=== PATIENT | female | born 1975 | race Caucasian/White ===

== ENCOUNTER 2018-11-11 22:51 | Emergency (ER) | payer BC ==
[~2018-11-11] VITALS: Ht 157.5 cm; Wt 74.8 kg
[~2018-11-11 22:51] MED LIST: ALBU8.5H6 INH; ALPR1TAB2 PO; ASPI-482 PO; CHOL500045 PO; CYCL10TA2 PO; FENO145T30 PO; FEXO180T81 PO; GLIM4TAB2 PO; LISI1TAB7 PO; METF100010 PO; MONT10TA6 PO; OXCA300O PO; OXCA300T19 PO; TOPI50TA38 PO; TRAZ-86 PO
--- NOTE | 2018-11-12 00:33 | PHYS DOC ---
Past Medical History Past Medical History: Anxiety, Arthritis, Asthma, Bipolar, Depression, Diabetes-Type II, Fibromyalgia, High Cholesterol, Hypertension, Migraines, Other Additional Past Medical Histor: ptsd,add,carpal tunnel,insomnia,c5-c7 bulging discs,sleep apnea,allergies Past Surgical History: Cholecystectomy, Tubal ligation, Other Additional Past Surgical Histo: hymenectomy? Alcohol Use: None Drug Use: None Adult General Chief Complaint Chief Complaint: BLURRED/DOUBLE VISION HPI HPI Patient is a 43 year old female who presents with complaining of episodes of mann ble vision. Patient complaining of episodes of double vision in the morning that usually lasts about 20 minutes for the last 3 days. Patient stated she had an episode of double vision since 1930 after she woke up from her nap that did not resolve like her usual episodes of double vision. Review of Systems Review of Systems Constitutional: Denies fever or chills [] Eyes: Denies change in visual acuity, redness, or eye pain [] HENT: Denies nasal congestion or sore throat [] Respiratory: Denies cough or shortness of breath [] Cardiovascular: No additional information not addressed in HPI [] GI: Denies abdominal pain, nausea, vomiting, bloody stools or diarrhea [] : Denies dysuria or hematuria [] Musculoskeletal: Denies back pain or joint pain [] Integument: Denies rash or skin lesions [] Neurologic: Denies headache, focal weakness or sensory changes [] Endocrine: Denies polyuria or polydipsia [] All other systems were reviewed and found to be within normal limits, except as documented in this note. Current Medications Current Medications Current Medications Medications (Trade) Dose Ordered Sig/Caitlin Start Time Stop Time Status Last Admin Dose Admin Albuterol Sulfate (Ventolin Neb Soln) 10 mg 1X ONCE 11/12/18 01:00 11/12/18 01:01 Cancel Ceftriaxone Sodium (Rocephin Im) 1 gm 1X ONCE 11/12/18 02:00 11/12/18 02:01 Cancel Ceftriaxone Sodium (Rocephin) 1 gm 1X ONCE 11/12/18 02:00 11/12/18 02:01 DC 11/12/18 01:55 1 GM Dextrose (Dextrose 50%-Water Syringe) 25 gm 1X ONCE 11/12/18 01:00 11/12/18 01:01 Cancel Insulin Human Regular (HumuLIN R VIAL) 10 unit 1X ONCE 11/12/18 01:00 11/12/18 01:01 Cancel Lorazepam (Ativan Inj) 1 mg 1X ONCE 11/12/18 01:00 11/12/18 01:01 DC 11/12/18 00:40 1 MG Magnesium Sulfate 50 ml @ 25 mls/hr 1X ONCE 11/12/18 02:00 11/12/18 03:58 DC 11/12/18 01:55 25 MLS/HR Sodium Chloride 1,000 ml @ 1,000 mls/hr 1X ONCE 11/12/18 02:00 11/12/18 02:59 DC 11/12/18 01:55 1,000 MLS/HR Allergies Allergies Allergies Coded Allergies Type Severity Reaction Last Updated Verified Penicillins Allergy Intermediate hives/rash 03/18/17 Yes erythromycin base Allergy Intermediate vomiting 03/18/17 Yes lithium Allergy Intermediate toxicity 03/18/17 Yes olanzapine Allergy Intermediate twitching 03/18/17 Yes risperidone Allergy Intermediate altered mental status 03/18/17 Yes ziprasidone Allergy Intermediate "spaced out" 03/18/17 No Physical Exam Physical Exam Constitutional: Well developed, well nourished, no acute distress, non-toxic appearance. [] HENT: Normocephalic, atraumatic, bilateral external ears normal, oropharynx moist, no oral exudates, nose normal. [] Eyes: PERRLA, EOMI, conjunctiva normal, no discharge. [] Neck: Normal range of motion, no tenderness, supple, no stridor. [] Cardiovascular:Heart rate regular rhythm, no murmur [] Lungs & Thorax: Bilateral breath sounds clear to auscultation [] Abdomen: Bowel sounds normal, soft, no tenderness, no masses, no pulsatile masses. [] Skin: Warm, dry, no erythema, no rash. [] Back: No tenderness, no CVA tenderness. [] Extremities: No tenderness, no cyanosis, no clubbing, ROM intact, no edema. [] Neurologic: Alert and oriented X 3, normal motor function, normal sensory function, no focal deficits noted. [] Psychologic: Affect normal, judgement normal, mood normal. [] Current Patient Data Vital Signs Vital Signs Date Time Temp Pulse Resp B/P (MAP) Pulse Ox O2 Delivery O2 Flow Rate FiO2 11/12/18 03:21 115 148/88 (108) 99 Room Air 11/11/18 23:45 99.7 18 99.7 Lab Values Laboratory Tests Test 11/11/18 23:50 11/12/18 00:05 11/12/18 00:29 POC Urine HCG, Qualitative Hcg negative (Negative) Urine Collection Type Unknown Urine Color Yellow Urine Clarity Clear Urine pH 6.5 Urine Specific [place] 1.025 Urine Protein Negative mg/dL (NEG-TRACE) Urine Glucose (UA) 100 mg/dL (NEG) Urine Ketones (Stick) Negative mg/dL (NEG) Urine Blood Moderate (NEG) Urine Nitrite Negative (NEG) Urine Bilirubin Negative (NEG) Urine Urobilinogen Dipstick 0.2 mg/dL (0.2 mg/dL) Urine Leukocyte Esterase Moderate (NEG) Urine RBC 6-10 /HPF (0-2) Urine WBC Tntc /HPF (0-4) Urine Squamous Epithelial Cells Mod /LPF Urine Bacteria Moderate /HPF (0-FEW) Urine Mucus Slight /LPF Urine Opiates Screen Neg (NEG) Urine Methadone Screen Neg (NEG) Urine Barbiturates Neg (NEG) Urine Phencyclidine Screen Neg (NEG) Urine Amphetamine/Methamphetamine Neg (NEG) Urine Benzodiazepines Screen Pos (NEG) Urine Cocaine Screen Neg (NEG) Urine Cannabinoids Screen Neg (NEG) Urine Ethyl Alcohol Neg (NEG) White Blood Count 8.4 x10^3/uL (4.0-11.0) Red Blood Count 4.20 x10^6/uL (3.50-5.40) Hemoglobin 11.9 g/dL (12.0-15.5) L Hematocrit 35.0 % (36.0-47.0) L Mean Corpuscular Volume 83 fL (79-100) Mean Corpuscular Hemoglobin 28 pg (25-35) Mean Corpuscular Hemoglobin Concent 34 g/dL (31-37) Red Cell Distribution Width 12.7 % (11.5-14.5) Platelet Count 486 x10^3/uL (140-400) H Neutrophils (%) (Auto) 75 % (31-73) H Lymphocytes (%) (Auto) 16 % (24-48) L Monocytes (%) (Auto) 6 % (0-9) Eosinophils (%) (Auto) 1 % (0-3) Basophils (%) (Auto) 1 % (0-3) Neutrophils # (Auto) 6.3 x10^3uL (1.8-7.7) Lymphocytes # (Auto) 1.4 x10^3/uL (1.0-4.8) Monocytes # (Auto) 0.5 x10^3/uL (0.0-1.1) Eosinophils # (Auto) 0.1 x10^3/uL (0.0-0.7) Basophils # (Auto) 0.1 x10^3/uL (0.0-0.2) Prothrombin Time 12.8 SEC (11.7-14.0) Prothrombin Time INR 1.0 (0.8-1.1) Sodium Level 133 mmol/L (136-145) L Potassium Level 4.3 mmol/L (3.5-5.1) Chloride Level 97 mmol/L (98-107) L Carbon Dioxide Level 22 mmol/L (21-32) Anion Gap 14 (6-14) Blood Urea Nitrogen 14 mg/dL (7-20) Creatinine 0.9 mg/dL (0.6-1.0) Estimated GFR (Cockcroft-Gault) 68.7 BUN/Creatinine Ratio 16 (6-20) Glucose Level 167 mg/dL (70-99) H Calcium Level 9.2 mg/dL (8.5-10.1) Magnesium Level 1.2 mg/dL (1.8-2.4) L Total Bilirubin 0.1 mg/dL (0.2-1.0) L Aspartate Amino Transferase (AST) 13 U/L (15-37) L Alanine Aminotransferase (ALT) 20 U/L (14-59) Alkaline Phosphatase 43 U/L (46-116) L Troponin I Quantitative < 0.017 ng/mL (0.000-0.055) Total Protein 7.4 g/dL (6.4-8.2) Albumin 4.4 g/dL (3.4-5.0) Albumin/Globulin Ratio 1.5 (1.0-1.7) Laboratory Tests 11/12/18 00:29 Laboratory Tests 11/12/18 00:29 EKG EKG EKG interpreted by me. EKG at 0044 showed sinus tachycardia at rate of 127, left villanueva axis, poor R-wave progress in anteroseptal leads, no acute ST and T-wave abnormalities. Radiology/Procedures Radiology/Procedures [facility] [address] [place] [address] IMAGING REPORT Signed PATIENT: SAURABH HERNANDEZ ACCOUNT: [id number] : 1975 LOCATION: ER AGE: 43 SEX: F EXAM STATUS: REG ER ORD. PHYSICIAN: ADAM MINER MD REASON: double vision PROCEDURE: CT HEAD WO CONTRAST PQRS Compliance statement: One or more of the following individualized dose reduction techniques were utilized for this examination: 1. Automated exposure control. 2. Adjustment of the mA and/or kV according to patient size. 3. Use of iterative reconstruction technique. Indication:Double vision TECHNIQUE: CT head without IV contrast COMPARISON:None FINDINGS: No pathologic extra-axial or intra-axial fluid collection. The ventricles and basal cisterns are within normal limits. No acute intracranial bleed. No focal loss of murphy-white differentiation. Orbits are within normal limits. No suspicious calvarial lesion. Visualized paranasal sinuses and mastoid air cells are clear. IMPRESSION: No acute intracranial processes noncontrast CT. If concern for acute ischemic stroke is high, please consider MRI brain. Electronically signed by: Phong Escamilla DO (11/12/2018 1:11 AM) [facility] DICTATED and SIGNED BY: PHONG ESCAMILLA DO DATE: 11/12/18 011 Course & Med Decision Making Course & Med Decision Making Pertinent Labs and Imaging studies reviewed. (See chart for details) Evaluation of patient in ER showed 43-year-old female patient with complaining of intermittent episodes of diplopia for several days. Patient had NIHSS of 0. Patient had tachycardia to 130s that improved with IV fluid and Atrovent. Diplopia was resolved on patient was in ER. Patient had no magnesium of 1.3 and treated with IV magnesium. UA showed more than 40 WBC and patient with Rocephin. Patient was advised to take her bipolar medication and follow up with her primary care physician. Dragon Disclaimer Dragon Disclaimer This electronic medical record was generated, in whole or in part, using a voice recognition dictation system. Departure Departure Impression: Primary Impression: Double vision Additional Impressions: Hypomagnesemia UTI (urinary tract infection) Anxiety Tachycardia Disposition: 01 HOME, SELF-CARE (at 0251) Condition: IMPROVED Referrals: GREG VALENTIN MD (PCP) Patient Instructions: Anxiety and Panic Attacks, Diplopia, Hypomagnesemia, Urinary Tract Infection Additional Instructions: Drink plenty of liquids Follow-up with your primary care physician in 3-5 days Return to ER if not getting better Scripts Cephalexin (KEFLEX) 500 Mg Capsule 2 CAP PO Q12HR, #28 CAP Prov: ADAM MINER MD 11/12/18 NIHSS Stroke Scale NIH Stroke Scale: NIH Stroke Scale Response (Comments) Value Level of Consciousness: 0 Alert/Responsive 0 LOC Questions: 0 Answers both correctly 0 Best Gaze: 0 Normal 0 Visual: 0 No visual loss 0 Facial Palsy: 0 Normal, symmetrical 0 Motor - Left Arm 0 No drift 0 Motor - Right Arm 0 No drift 0 Motor - Left Leg 0 No drift 0 Motor: Right Leg 0 No drift 0 Limb Ataxia: 0 Absent 0 Sensory: 0 No loss 0 Best Language: 0 Normal 0 Dysathria: 0 Normal 0 Extinction and Inattention: 0 Normal 0 Total 0 Problem Qualifiers Additional Impressions: UTI (urinary tract infection) Urinary tract infection type: acute cystitis Hematuria presence: without hematuria Qualified Codes: N30.00 - Acute cystitis without hematuria ADAM MINER MD November 12, 2018 00:33
[2018-11-12 00:39] LABS: BASO # 0.1 x10^3/uL (0.0-0.2); BASO % 1 % (0-3); EOS # 0.1 x10^3/uL (0.0-0.7); EOS % 1 % (0-3); HEMOGLOBIN 11.9 g/dL (12.0-15.5); LYMPH # 1.4 x10^3/uL (1.0-4.8); LYMPH % 16 % (24-48); MEAN CORPUSCULAR HEMOGLOBIN 28 pg (25-35); MEAN CORPUSCULAR HGB CONC 34 g/dL (31-37); MEAN CORPUSCULAR VOLUME 83 fL (79-100); MONO # 0.5 x10^3/uL (0.0-1.1); MONO % 6 % (0-9); NEUT # 6.3 x10^3uL (1.8-7.7); NEUT % 75 % (31-73); PLATELET COUNT 486 x10^3/uL (140-400); RED CELL DISTRIBUTION WIDTH 12.7 % (11.5-14.5); WHITE BLOOD COUNT 8.4 x10^3/uL (4.0-11.0)
[2018-11-12 00:48] LABS: PROTHROMBIN TIME PATIENT 12.8 SEC (11.7-14.0)
[2018-11-12 00:51] LABS: CALCIUM 9.2 mg/dL (8.5-10.1); CREATININE 0.9 mg/dL (0.6-1.0); GFR 68.7; POTASSIUM 4.3 mmol/L (3.5-5.1)
[2018-11-12 00:56] LABS: ALBUMIN 4.4 g/dL (3.4-5.0); ALBUMIN/GLOBULIN RATIO 1.5 (1.0-1.7); MAGNESIUM 1.2 mg/dL (1.8-2.4); TOTAL BILIRUBIN 0.1 mg/dL (0.2-1.0); TOTAL PROTEIN 7.4 g/dL (6.4-8.2)
[2018-11-12] MEDS ORDERED: DEXTROSE 50% 25 GM / 50ML DISP.SYRIN. IV ONE (01:00)
[2018-11-12] MEDS ORDERED: ALBUTEROL SULFATE 2.5 MG/3 ML NEBU. CONT NEB ONE (01:00)
[2018-11-12] MEDS ORDERED: INSULIN REGULAR 100 UNIT/ML 3ML VIAL. IV ONE (01:00)
[2018-11-12 01:04] LABS: BILIRUBIN,URINE NEGATIVE (NEG); CLARITY,URINE CLEAR; COLOR,URINE YELLOW; NITRITE,URINE NEGATIVE (NEG); PH,URINE 6.5; PROTEIN,URINE NEGATIVE (NEG-TRACE); UROBILINOGEN,URINE 0.2 mg/dL (0.2 mg/dL)
[2018-11-12 01:11] LABS: BARBITURATES NEG (NEG); BENZODIAZEPINES POS (NEG); CANNABINOIDS NEG (NEG); COCAINE NEG (NEG); METHADONE NEG (NEG); OPIATES NEG (NEG); PHENCYCLIDINE NEG (NEG)
[2018-11-12 01:12] LABS: AMPHETAMINE/METHAMPHETAMINE NEG (NEG)
--- NOTE | 2018-11-12 01:14 | RAD ---
PQRS Compliance statement: One or more of the following individualized dose reduction techniques were utilized for this examination: 1. Automated exposure control. 2. Adjustment of the mA and/or kV according to patient size. 3. Use of iterative reconstruction technique. Indication:Double vision TECHNIQUE: CT head without IV contrast COMPARISON:None FINDINGS: No pathologic extra-axial or intra-axial fluid collection. The ventricles and basal cisterns are within normal limits. No acute intracranial bleed. No focal loss of murphy-white differentiation. Orbits are within normal limits. No suspicious calvarial lesion. Visualized paranasal sinuses and mastoid air cells are clear. IMPRESSION: No acute intracranial processes noncontrast CT. If concern for acute ischemic stroke is high, please consider MRI brain. Electronically signed by: Phong Escamilla DO (11/12/2018 1:11 AM) [facility]
[2018-11-12 01:21] LABS: BACTERIA,URINE MODERATE /HPF (0-FEW); SQUAMOUS EPITHELIAL CELL,UR MOD /LPF; WBC,URINE TNTC /HPF (0-4)
[2018-11-12] MEDS ORDERED: cefTRIAXone IM 1 GM VIAL IM ONE (02:00)
[2018-11-12] MEDS ORDERED: cefTRIAXone IV Push 1 GM VIAL. IVP ONE (02:00)
[2018-11-12] MEDS ORDERED: IV NORMAL SALINE 1000ML BAG 1,000 ML IV ONE (02:00)
[2018-11-12] MEDS ORDERED: MAGNESIUM SULFATE 2GM 50 ML IV ONE (02:00)
[2018-11-12] MEDS ORDERED: CEPH-264 PO (02:53)
[2018-11-12 03:21] VITALS: BP 148/88
--- NOTE | 2018-11-12 05:55 | EKG ---
[facility] [address] [place] [address] Test Date: 2018-11-12 Test Time: 00:44:03 Pat Name: SAURABH HERNANDEZ Department: Room: Gender: F Skin Grader: : 1975 Requested By: ADAM MINER Order Number: [id number] Reading MD: Measurements Intervals [place] Rate: 127 P: -47 CT: 110 QRS: -9 QRSD: 64 T: 2 QT: 342 QTc: 503 Interpretive Statements SINUS TACHYCARDIA LEFTWARD AXIS QRS(T) CONTOUR ABNORMALITY CONSISTENT WITH ANTEROSEPTAL INFARCT AGE UNDETERMINED ABNORMAL ECG RI6.01 Unconfirmed report No previous ECG available for comparison
== END 2018-11-12 03:55 | disposition home or self-care (01) ==
LOC: ER 22:51
DX: H53.2 Diplopia (principal); N30.00 Acute cystitis without hematuria; E83.42 Hypomagnesemia; R00.0 Tachycardia, unspecified; F41.9 Anxiety disorder, unspecified; M19.90 Unspecified osteoarthritis, unspecified site; J45.909 Unspecified asthma, uncomplicated; F31.9 Bipolar disorder, unspecified; E11.9 Type 2 diabetes mellitus without complications; E78.00 Pure hypercholesterolemia, unspecified; I10 Essential (primary) hypertension; G43.909 Migraine, unspecified, not intractable, without status migrainosus; Z90.49 Acquired absence of other specified parts of digestive tract; Z98.51 Tubal ligation status; Z88.0 Allergy status to penicillin; Z88.1 Allergy status to other antibiotic agents; Z88.8 Allergy status to other drugs, medicaments and biological substances
CPT/HCPCS: 36415; 70450; 80053; 80307; 81001; 81025; 83735; 84484; 85025; 85610; 87086; 93005; 96365; 96366; 96375; 99285; J0696; J2060; J3475; J7030

== ENCOUNTER 2018-11-18 08:48 | Inpatient (IN) | payer BC ==
[~2018-11-18] VITALS: Ht 157.5 cm; Wt 72.3 kg
[~2018-11-18 08:48] MED LIST changes: +CEPH-264 PO
[2018-11-18 09:31] LABS: BASO # 0.1 x10^3/uL (0.0-0.2); BASO % 1 % (0-3); EOS # 0.1 x10^3/uL (0.0-0.7); EOS % 1 % (0-3); HEMATOCRIT 34.7 % (36.0-47.0); HEMOGLOBIN 12.3 g/dL (12.0-15.5); LYMPH # 1.4 x10^3/uL (1.0-4.8); LYMPH % 19 % (24-48); MEAN CORPUSCULAR HEMOGLOBIN 29 pg (25-35); MEAN CORPUSCULAR HGB CONC 36 g/dL (31-37); MEAN CORPUSCULAR VOLUME 82 fL (79-100); MONO # 0.7 x10^3/uL (0.0-1.1); MONO % 9 % (0-9); NEUT # 5.4 x10^3uL (1.8-7.7); NEUT % 71 % (31-73); PLATELET COUNT 441 x10^3/uL (140-400); RED BLOOD COUNT 4.24 x10^6/uL (3.50-5.40); RED CELL DISTRIBUTION WIDTH 12.6 % (11.5-14.5); WHITE BLOOD COUNT 7.6 x10^3/uL (4.0-11.0)
[2018-11-18 09:41] LABS: CREATININE 0.8 mg/dL (0.6-1.0); GFR 78.7; MAGNESIUM 1.3 mg/dL (1.8-2.4); POTASSIUM 4.1 mmol/L (3.5-5.1)
--- NOTE | 2018-11-18 09:45 | PHYS DOC ---
Past Medical History Past Medical History: Anxiety, Arthritis, Asthma, Bipolar, Depression, Diabetes-Type II, Fibromyalgia, High Cholesterol, Hypertension, Migraines, Other Additional Past Medical Histor: ptsd,add,carpal tunnel,insomnia,c5-c7 bulging discs,sleep apnea,allergies Past Surgical History: Cholecystectomy, Tubal ligation, Other Additional Past Surgical Histo: hymenectomy? Alcohol Use: Rarely Drug Use: None Adult General Chief Complaint Chief Complaint: BLURRED/DOUBLE VISION HPI HPI Patient is a 41-year-old female who presents to the emergency department for ev aluation. She states "I am having double vision again". Patient states she was emergency department last week for similar symptoms. She underwent a workup, including a CT scan of her head which was unremarkable. She was noted to have hypomagnesemia, which was replaced IV. She states that today she began experiencing double vision again. She states it is primarily only when she has both eyes open. When she closes one eye, it seems to resolve. She does not have any monocular symptoms, in either eye. She denies any pain. She denies any headache, chest pain, or shortness of breath. Denies any numbness or weakness. There are no alleviating or exacerbating factors to her symptoms. Review of Systems Review of Systems Constitutional: Denies fever or chills [] Eyes: Denies eye redness, or eye pain [] HENT: Denies nasal congestion or sore throat [] Respiratory: Denies cough or shortness of breath [] Cardiovascular: No additional information not addressed in HPI [] GI: Denies abdominal pain, nausea, vomiting, bloody stools or diarrhea [] : Denies dysuria or hematuria [] Musculoskeletal: Denies back pain or joint pain [] Integument: Denies rash or skin lesions [] Neurologic: Denies headache, focal weakness or sensory changes [] Endocrine: Denies polyuria or polydipsia [] All other systems were reviewed and found to be within normal limits, except as documented in this note. Current Medications Current Medications Current Medications Medications (Trade) Dose Ordered Sig/Caitlin Start Time Stop Time Status Last Admin Dose Admin Magnesium Sulfate/ Dextrose 100 ml @ 25 mls/hr 1X ONCE 11/18/18 10:15 11/18/18 14:14 Sodium Chloride 1,000 ml @ 1,000 mls/hr 1X ONCE 11/18/18 10:15 11/18/18 11:14 Allergies Allergies Allergies Coded Allergies Type Severity Reaction Last Updated Verified Penicillins Allergy Intermediate hives/rash 03/18/17 Yes erythromycin base Allergy Intermediate vomiting 03/18/17 Yes lactose Allergy Intermediate 11/18/18 Yes lithium Allergy Intermediate toxicity 03/18/17 Yes olanzapine Allergy Intermediate twitching 03/18/17 Yes risperidone Allergy Intermediate altered mental status 03/18/17 Yes trazodone Allergy Intermediate 11/18/18 Yes ziprasidone Allergy Intermediate "spaced out" 03/18/17 No Physical Exam Physical Exam PHYSICAL EXAM: CONSTITUTIONAL: Well developed, well nourished HEAD: normocephalic, atraumatic EENT: PERRL, EOMI. Conjunctivae normal color, sclerae non-icteric; moist mucous membranes. NECK: Supple, non-tender; no meningismus. LUNGS: Lungs CTA, breathing even and unlabored. Normal air movement. HEART: Regular rate and rhythm, no murmur CHEST: No deformity; non-tender ABDOMEN: The abdomen is soft, and non-tender, no masses or bruits. EXTREM: Normal ROM; no deformity, no calf tenderness. Normal pulses palpable in all extremities. There is no pedal edema. SKIN: No rash; no diaphoresis NEURO: Alert; normal speech and cognition; CN's grossly intact; strength grossly intact without focal deficit. Visual almanzar are intact by confrontation. [id number] and heel paz testing is intact. BACK: No CVA TTP. Current Patient Data Vital Signs Vital Signs Date Time Temp Pulse Resp B/P (MAP) Pulse Ox O2 Delivery O2 Flow Rate FiO2 11/18/18 09:08 98.7 113 20 193/96 (128) 99 Room Air 98.7 Lab Values Laboratory Tests Test 11/18/18 09:24 White Blood Count 7.6 x10^3/uL (4.0-11.0) Red Blood Count 4.24 x10^6/uL (3.50-5.40) Hemoglobin 12.3 g/dL (12.0-15.5) Hematocrit 34.7 % (36.0-47.0) L Mean Corpuscular Volume 82 fL (79-100) Mean Corpuscular Hemoglobin 29 pg (25-35) Mean Corpuscular Hemoglobin Concent 36 g/dL (31-37) Red Cell Distribution Width 12.6 % (11.5-14.5) Platelet Count 441 x10^3/uL (140-400) H Neutrophils (%) (Auto) 71 % (31-73) Lymphocytes (%) (Auto) 19 % (24-48) L Monocytes (%) (Auto) 9 % (0-9) Eosinophils (%) (Auto) 1 % (0-3) Basophils (%) (Auto) 1 % (0-3) Neutrophils # (Auto) 5.4 x10^3uL (1.8-7.7) Lymphocytes # (Auto) 1.4 x10^3/uL (1.0-4.8) Monocytes # (Auto) 0.7 x10^3/uL (0.0-1.1) Eosinophils # (Auto) 0.1 x10^3/uL (0.0-0.7) Basophils # (Auto) 0.1 x10^3/uL (0.0-0.2) Sodium Level 126 mmol/L (136-145) L Potassium Level 4.1 mmol/L (3.5-5.1) Chloride Level 91 mmol/L (98-107) L Carbon Dioxide Level 24 mmol/L (21-32) Anion Gap 11 (6-14) Blood Urea Nitrogen 12 mg/dL (7-20) Creatinine 0.8 mg/dL (0.6-1.0) Estimated GFR (Cockcroft-Gault) 78.7 Glucose Level 136 mg/dL (70-99) H Calcium Level 9.0 mg/dL (8.5-10.1) Magnesium Level 1.3 mg/dL (1.8-2.4) L Free Thyroxine 1.10 ng/dL (0.76-1.46) Laboratory Tests 11/18/18 09:24 Laboratory Tests 11/18/18 09:24 EKG EKG Normal sinus rhythm at a rate of 102 beats for minute, left axis deviation, normal intervals. There are no acute ischemic ST-T changes.[] Radiology/Procedures Radiology/Procedures [] Course & Med Decision Making Course & Med Decision Making Pertinent Lab studies reviewed. (See chart for details) [] 10:20 AM: The patient's condition remained stable. Discussed the case with Dr. Yeboah, neurology, and the hospitalist, and the patient will be admitted. Dragon Disclaimer Dragon Disclaimer This electronic medical record was generated, in whole or in part, using a voice recognition dictation system. Departure Departure Impression: Primary Impression: Blurred vision Additional Impressions: Hyponatremia Hypomagnesemia Disposition: ADMITTED INPATIENT Admitting Physician: ALEK Condition: STABLE Referrals: GREG VALENTIN MD (PCP) Problem Qualifiers VANESSA HCOUDHURY MD Nov 18, 2018 09:44
[2018-11-18] MEDS ORDERED: MAGNESIUM SULFATE 4GM 100 ML IV ONE (10:15)
[2018-11-18] MEDS ORDERED: IV NORMAL SALINE 1000ML BAG 1,000 ML IV ONE (10:15)
--- NOTE | 2018-11-18 11:29 | EKG ---
[facility] [address] [place] [address] Test Date: 2018-11-18 Test Time: 09:26:52 Pat Name: SAURABH HERNANDEZ Department: Room: Gender: F Sales Account Representative: : 1975 Requested By: VANESSA CHOUDHURY Order Number: [id number] Reading MD: Measurements Intervals [place] Rate: 101 P: 31 [place]: 144 QRS: -16 QRSD: 70 T: 0 QT: 330 QTc: 434 Interpretive Statements SINUS TACHYCARDIA LEFTWARD AXIS QRS(T) CONTOUR ABNORMALITY CONSIDER ANTEROSEPTAL MYOCARDIAL DAMAGE CONSISTENT WITH INFERIOR INFARCT PROBABLY OLD ABNORMAL ECG No previous ECG available for comparison
[2018-11-18] MEDS ORDERED: ALPRAZolam 1 MG TABLET PO PRN (12:45)
--- NOTE | 2018-11-18 12:48 | PDOC2 ---
NEUROLOGY CONSULT Date of Admission Date of Admission DATE: 11/18/18 TIME: 12:39 Reason for Consult Reason for Consult: Diplopia Referring Physician Referring Physician: Dr. Vazquez PCP: Dr. Peralta Source Source: Chart review, Patient History of Present Illness History of Present Illness The patient is a 43-year-old right-handed female admitted with diplopia and also found to have hyponatremia. She has been having this off and on for the past 9 days. She mostly notices it in the morning. She describes somewhat blurred vision as well as occasional actual horizontal diplopia. She was on some Haldol last month for her severe bipolar disorder but that was discontinued. Otherwise she is on no new medications. She denies any dysarthria, dysphagia, numbness, weakness, history of stroke, seizure, or head injury. She did have a mild headache yesterday but does not usually have headaches. She saw her online facilitator 3 weeks ago for a routine checkup, and was not having symptoms at that time. She has been going through some physical therapy for back pain. She was in the emergency room last week for the vision changes, and was dismissed with diagnosis of urinary tract infection and low magnesium level. A head CT was negative. Past Medical History Cardiovascular: HTN Pulmonary: Asthma Psych: Anxiety, Bipolar Musculoskeletal: low back pain, Osteoarthritis Rheumatologic: Fibromyalgia Past Surgical History Past Surgical History: Cholecystectomy, Tubal Ligation, Other (hymenectomy) Family History Family History: No pertinent hx Social History Social History , unemployed, no alcohol, tobacco, or street drugs. Current Medications Current Medications Current Medications Sodium Chloride 1,000 ml @ 1,000 mls/hr 1X ONCE IV Last administered on 11/18/18at 10:31; Start 11/18/18 at 10:15; Stop 11/18/18 at 11:14; Status DC Magnesium Sulfate/ Dextrose 100 ml @ 25 mls/hr 1X ONCE IV Last administered on 11/18/18at 10:31; Start 11/18/18 at 10:15; Stop 11/18/18 at 14:14 Active Scripts Active Keflex (Cephalexin) 500 Mg Capsule 2 Cap PO Q12HR Reported Odalys Allergy (Fexofenadine Hcl) 180 Mg Tablet 180 Mg PO DAILY Cyclobenzaprine Hcl 10 Mg Tablet 10 Mg PO HS PRN Singulair Tablet (Montelukast Sodium) 10 Mg Tablet 10 Mg PO HS Xanax (Alprazolam) 1 Mg Tablet 1 Mg PO PRN Q6HRS PRN Trazodone Hcl 100 Mg Tablet 200 Mg PO HS Oxcarbazepine 300 Mg/5 Ml Oral.susp 900 Mg PO HS Oxcarbazepine 300 Mg Tablet 300 Mg PO DAILY08 Albuterol Sulfate Hfa Inhaler (Albuterol Sulfate) 8.5 Gm Hfa.aer.ad 2 Puff INH Q4HRS PRN Vitamin D (Cholecalciferol (Vitamin D3)) 5,000 Unit Tablet 5,000 Unit PO DAILY08 Aspir 81 (Aspirin) 81 Mg Tablet.dr 81 Mg PO DAILY08 Metformin Hcl Er (Metformin Hcl) 1,000 Mg Tab.er.24 2,000 Mg PO DAILY08 Topamax (Topiramate) 50 Mg Tablet 50 Mg PO DAILY08 Lisinopril-Hctz 20-25 Mg Tab (Lisinopril/Hydrochlorothiazide) 1 Each Tablet 1 Tab PO DAILY Allergies Allergies: Coded Allergies: Penicillins (Verified Allergy, Intermediate, hives/rash, 03/18/17) erythromycin base (Verified Allergy, Intermediate, vomiting, 03/18/17) lactose (Verified Allergy, Intermediate, 11/18/18) lithium (Verified Allergy, Intermediate, toxicity, 03/18/17) olanzapine (Verified Allergy, Intermediate, twitching, 03/18/17) risperidone (Verified Allergy, Intermediate, altered mental status, 03/18/17) trazodone (Verified Allergy, Intermediate, 11/18/18) ziprasidone (Unverified Allergy, Intermediate, "spaced out", 03/18/17) ROS Review of System Negative for fever, chills, weight loss, shortness of breath, chest pain, indigestion, hematochezia, melena, and dysuria. Full 14-point review of systems is negative. Physical Exam Physical Examination General: Well-developed, well-nourished white female in no acute distress HEENT: Normocephalic andatraumatic.Temporal arteriespulsatile and nontender.Fundoscopic exam unremarkable Neck: Supple without bruit, no meningismus Musculoskeletal: Stability:see neurologic. Gait exam:see neurologic. Tone:see ne urologic.Strength:see neurologic. Neurological: Mental Status:intact, orientation, memory, attention span/concentration, karina guage, fund of knowledge normal. Cranial Nerves:Pupils equal and reactive to light, extraocular movements areintact, visual almanzar are full to confrontation. Facial sensation is normal. There is no facial asymmetry. Vestibulo-ocular reflex is intact. Palate elevates and tongue protrudes in midline. All other cranial related problems are negative except as mentioned before.Reflexes:2+ and symmetric with flexor plantar responses. Motor:5/5 strength with normal tone and bulk. Coordination:Finger-nose finger and [id number] testing are normal. Rapid alternating movements and fine finger movements are intact. Gait:Normal, including tandem. Sensory:Normal pinprick, vibration, light touch, proprioception. Vitals VITALS Vital Signs Date Time Temp Pulse Resp B/P (MAP) Pulse Ox O2 Delivery O2 Flow Rate FiO2 11/18/18 11:00 108 14 173/93 (119) 96 Room Air 11/18/18 09:08 98.7 98.7 Labs Labs Laboratory Tests Test 11/18/18 09:24 11/18/18 12:00 White Blood Count 7.6 x10^3/uL (4.0-11.0) Red Blood Count 4.24 x10^6/uL (3.50-5.40) Hemoglobin 12.3 g/dL (12.0-15.5) Hematocrit 34.7 % (36.0-47.0) Mean Corpuscular Volume 82 fL (79-100) Mean Corpuscular Hemoglobin 29 pg (25-35) Mean Corpuscular Hemoglobin Concent 36 g/dL (31-37) Red Cell Distribution Width 12.6 % (11.5-14.5) Platelet Count 441 x10^3/uL (140-400) Neutrophils (%) (Auto) 71 % (31-73) Lymphocytes (%) (Auto) 19 % (24-48) Monocytes (%) (Auto) 9 % (0-9) Eosinophils (%) (Auto) 1 % (0-3) Basophils (%) (Auto) 1 % (0-3) Neutrophils # (Auto) 5.4 x10^3uL (1.8-7.7) Lymphocytes # (Auto) 1.4 x10^3/uL (1.0-4.8) Monocytes # (Auto) 0.7 x10^3/uL (0.0-1.1) Eosinophils # (Auto) 0.1 x10^3/uL (0.0-0.7) Basophils # (Auto) 0.1 x10^3/uL (0.0-0.2) Sodium Level 126 mmol/L (136-145) Potassium Level 4.1 mmol/L (3.5-5.1) Chloride Level 91 mmol/L (98-107) Carbon Dioxide Level 24 mmol/L (21-32) Anion Gap 11 (6-14) Blood Urea Nitrogen 12 mg/dL (7-20) Creatinine 0.8 mg/dL (0.6-1.0) Estimated GFR (Cockcroft-Gault) 78.7 Glucose Level 136 mg/dL (70-99) Calcium Level 9.0 mg/dL (8.5-10.1) Magnesium Level 1.3 mg/dL (1.8-2.4) Free Thyroxine 1.10 ng/dL (0.76-1.46) Glucose (Fingerstick) 129 mg/dL (70-99) Laboratory Tests Test 11/18/18 09:24 11/18/18 12:00 White Blood Count 7.6 x10^3/uL (4.0-11.0) Red Blood Count 4.24 x10^6/uL (3.50-5.40) Hemoglobin 12.3 g/dL (12.0-15.5) Hematocrit 34.7 % (36.0-47.0) Mean Corpuscular Volume 82 fL (79-100) Mean Corpuscular Hemoglobin 29 pg (25-35) Mean Corpuscular Hemoglobin Concent 36 g/dL (31-37) Red Cell Distribution Width 12.6 % (11.5-14.5) Platelet Count 441 x10^3/uL (140-400) Neutrophils (%) (Auto) 71 % (31-73) Lymphocytes (%) (Auto) 19 % (24-48) Monocytes (%) (Auto) 9 % (0-9) Eosinophils (%) (Auto) 1 % (0-3) Basophils (%) (Auto) 1 % (0-3) Neutrophils # (Auto) 5.4 x10^3uL (1.8-7.7) Lymphocytes # (Auto) 1.4 x10^3/uL (1.0-4.8) Monocytes # (Auto) 0.7 x10^3/uL (0.0-1.1) Eosinophils # (Auto) 0.1 x10^3/uL (0.0-0.7) Basophils # (Auto) 0.1 x10^3/uL (0.0-0.2) Sodium Level 126 mmol/L (136-145) Potassium Level 4.1 mmol/L (3.5-5.1) Chloride Level 91 mmol/L (98-107) Carbon Dioxide Level 24 mmol/L (21-32) Anion Gap 11 (6-14) Blood Urea Nitrogen 12 mg/dL (7-20) Creatinine 0.8 mg/dL (0.6-1.0) Estimated GFR (Cockcroft-Gault) 78.7 Glucose Level 136 mg/dL (70-99) Calcium Level 9.0 mg/dL (8.5-10.1) Magnesium Level 1.3 mg/dL (1.8-2.4) Free Thyroxine 1.10 ng/dL (0.76-1.46) Glucose (Fingerstick) 129 mg/dL (70-99) Assessment/Plan Assessment/Plan Impression: Intermittent diplopia, negative exam, suspect medication effects as she is on multiple psychiatric medications. I find no evidence of intracranial pathology, myasthenia, or other neuromuscular disease. Hyponatremia, she is on oxcarbazepine which could cause this. Recommendations: I resumed her Xanax, defer to primary service regarding her other medications, I suspect she needs to stay on all of them including the oxcarbazepine for now. We could then treat the hyponatremia with fluid restriction. MRI of the brain, she will need some of her Xanax for sedation. I will consider outpatient myasthenia serology testing. Thank you for letting me help with the patient's care. ARTURO COLUNGA MD Nov 18, 2018 12:48
[2018-11-18 13:09] VITALS: BP 164/99
[2018-11-18] MEDS ORDERED: OXCA150T19 PO (13:09)
[2018-11-18] MEDS ORDERED: DICL75TA PO (13:09)
[2018-11-18] MEDS ORDERED: AMLO5TAB10 PO (13:09)
[2018-11-18] MEDS ORDERED: BENZ1TAB5 PO (13:09)
[2018-11-18] MEDS ORDERED: CETI10TA22 PO (13:09)
[2018-11-18] MEDS ORDERED: BUPR300T4 PO (13:09)
[2018-11-18] MEDS ORDERED: FENO160T PO (13:09)
[2018-11-18] MEDS ORDERED: IBUP-1060 PO (13:09)
--- NOTE | 2018-11-18 14:19 | PDOC1 ---
History and Physical Date of Admission Date of Admission DATE: 11/18/18 TIME: 14:16 Identification/Chief Complaint Chief Complaint Diplopia Source Source: Chart review, Patient History of Present Illness History of Present Illness Ms Poe is a 43-year-old F w/ PMHx asthma, HTN, anxiety with bipolar depression who was admitted with diplopia and also found to have hyponatremia and hypomagnesemia. She has had diplopia on and off for over a week, worse when she looks horizontally. She was on some Haldol 2 months ago, but asked it to be discontinued due to visual disturbances when she was driving back from [place] with her . She was just prescribed Abilify recently but has not started taking it due to concerns about her vision. She has no other neurological symptoms, no dysarthria, dysphagia, numbness, weakness, history of stroke, seizure, or head injury. She actually just recent saw an aids counselor 3 weeks ago. She was just recently treated for a UTI and low mag last month in our ED and was seen for diplopia here last week as well. A head CT was negative on 11/12/18 Past Medical History Cardiovascular: HTN Pulmonary: Asthma Psych: Anxiety, Bipolar Musculoskeletal: low back pain, Osteoarthritis Rheumatologic: Fibromyalgia Past Surgical History Past Surgical History: Cholecystectomy, Tubal Ligation, Other (hymenectomy) Family History Family History: Family History Unknown Social History Smoke: No ALCOHOL: none Drugs: None Current Problem List Problem List Problems Medical Problems: (1) Blurred vision Status: Acute (2) Hypomagnesemia Status: Acute (3) Hyponatremia Status: Acute Current Medications Current Medications Current Medications Sodium Chloride 1,000 ml @ 1,000 mls/hr 1X ONCE IV Last administered on 11/18/18at 10:31; Start 11/18/18 at 10:15; Stop 11/18/18 at 11:14; Status DC Magnesium Sulfate/ Dextrose 100 ml @ 25 mls/hr 1X ONCE IV Last administered on 11/18/18at 10:31; Start 11/18/18 at 10:15; Stop 11/18/18 at 14:14; Status DC Alprazolam (Xanax) 1 mg PRN Q6HRS PRN PO ANXIETY / AGITATION; Start 11/18/18 at 12:45 Active Scripts Active Keflex (Cephalexin) 500 Mg Capsule 2 Cap PO Q12HR Reported Ibuprofen 800 Mg Tablet 800 Mg PO PRN Q6HRS PRN Oxcarbazepine 150 Mg Tablet 1,500 Mg PO HS Diclofenac Sodium 75 Mg Tablet.dr 1 Tab PO BID Bupropion Xl (Bupropion Hcl) 300 Mg Tab.er.24h 1 Tab PO DAILYWBKFT Benztropine Mesylate 1 Mg Tablet 1 Tab PO BID Zyrtec (Cetirizine Hcl) 10 Mg Tablet 1 Tab PO DAILY Fenofibrate 160 Mg Tablet 1 Tab PO DAILY Amlodipine Besylate 5 Mg Tablet 5 Mg PO DAILY Singulair Tablet (Montelukast Sodium) 10 Mg Tablet 10 Mg PO HS Xanax (Alprazolam) 1 Mg Tablet 1 Mg PO PRN Q6HRS PRN Albuterol Sulfate Hfa Inhaler (Albuterol Sulfate) 8.5 Gm Hfa.aer.ad 2 Puff INH Q4HRS PRN Metformin Hcl Er (Metformin Hcl) 1,000 Mg Tab.er.24 2,000 Mg PO DAILY08 Topamax (Topiramate) 50 Mg Tablet 50 Mg PO DAILY08 Allergies Allergies: Coded Allergies: Penicillins (Verified Allergy, Intermediate, hives/rash, 03/18/17) erythromycin base (Verified Allergy, Intermediate, vomiting, 03/18/17) lactose (Verified Allergy, Intermediate, 11/18/18) lithium (Verified Allergy, Intermediate, toxicity, 03/18/17) olanzapine (Verified Allergy, Intermediate, twitching, 03/18/17) risperidone (Verified Allergy, Intermediate, altered mental status, 03/18/17) trazodone (Verified Allergy, Intermediate, 11/18/18) ziprasidone (Unverified Allergy, Intermediate, "spaced out", 03/18/17) ROS General: No: Chills, Night Sweats, Fatigue, Malaise, Appetite, Other PSYCHOLOGICAL ROS: YES: Anxiety, Depression; No: Behavioral Disorder, Concentration difficultie, Decreased libido, Disorientation, Hallucinations, Hostility, Irritablity, Memory difficulties, Mood Swings, Obsessive thoughts, Physical abuse, Sexual abuse, Sleep disturbances, Suicidal ideation, Other Eyes: Yes Blurry vision, Yes Double vision; No Decreased vision, No Dry eyes, No Excessive tearing, No Eye Pain, No Itchy Eyes, No Loss of vision, No Photophobia, No Scotomata, No Uses contacts, No Uses glasses, No Other HEENT: No: Heacaches, Visual Changes, Hearing change, Nasal congestion, Nasal discharge, Oral lesions, Sinus pain, Sore Throat, Epistaxis, Sneezing, Snoring, Tinnitus, Vertigo, Vocal changes, Other ALLERGY AND IMMUNOLOGY: No: Hives, Insect Bite Sensitivity, Itchy/Watery Eyes, Nasal Congestion, Post Nasal Drip, Seasonal Allergies, Other Hematological and Lymphatic: No: Bleeding Problems, Blood Clots, Blood Transfusions, Brusing, Night Sweats, Pallor, Swollen Lymph Nodes, Other ENDOCRINE: No: Breast Changes, Galactorrhea, Hair Pattern Changes, Hot Flashes, Malaise/lethargy, Mood Swings, Palpitations, Polydipsia/polyuria, Skin Changes, Temperature Intolerance, Unexpected Weight Changes, Other Breast: No New/Changing Breast Lumps, No Nipple changes, No Nipple discharge, No Other Respiratory: No: Cough, Hemoptysis, Orthopnea, Pleuritic Pain, Shortness of breath, SOB with excertion, Sputum Changes, Stridor, Tachypnea, Wheezing, Other Cardiovascular: No Chest Pain, No Palpitations, No Orthopnea, No Paroxysmal Noc. Dyspnea, No Edema, No Lt Headedness, No Other Gastrointestinal: No Nausea, No Vomiting, No Abdominal Pain, No Diarrhea, No Constipation, No Melena, No Hematochezia, No Other Genitourinary: No Dysuria, No Frequency, No Incontinence, No Hematuria, No Retention, No Discharge, No Urgency, No Pain, No Flank Pain, No Other, No , No , No , No , No , No , No Musculoskeletal: No Gait Disturbance, No Joint Pain, No Joint Stiffness, No Joint Swelling, No Muscle Pain, No Muscular Weakness, No Pain In:, No Swelling In:, No Other Neurological: No Behavorial Changes, No Bowel/Bladder ControlChng, No Confusion, No Dizziness, No Gait Disturbance, No Headaches, No Impaired Coord/balance, No Memory Loss, No Numbness/Tingling, No Seizures, No Speech Problems, No Tremors, No Visual Changes, No Weakness, No Other Skin: No Dry Skin, No Eczema, No Hair Changes, No Lumps, No Mole Changes, No Mottling, No Nail Changes, No Pruritus, No Rash, No Skin Lesion Changes, No Other, No Acne Physical Exam General: Alert, Oriented X3, Cooperative, No acute distress HEENT: Atraumatic, PERRLA, EOMI, Mucous membr. moist/pink Lungs: Clear to auscultation, Normal air movement Heart: S1S2, RRR Abdomen: Normal bowel sounds, Soft, No tenderness, No hepatosplenomegaly, No masses Extremities: No clubbing, No cyanosis, No edema, Normal pulses, No tenderness/swelling Skin: No rashes, No breakdown, No significant lesion Neuro: Normal gait, Normal speech, Strength at 5/5 X4 ext, Normal tone, Sensation intact, Cranial nerves 3-12 NL, Reflexes 2+ Psych/Mental Status: Mental status NL, Mood NL Vitals Vitals Vital Signs Date Time Temp Pulse Resp B/P (MAP) Pulse Ox O2 Delivery O2 Flow Rate FiO2 11/18/18 13:21 Room Air 11/18/18 13:09 100.5 116 18 164/99 (120) 97 100.5 Labs Labs Laboratory Tests Test 11/18/18 09:24 11/18/18 12:00 White Blood Count 7.6 x10^3/uL (4.0-11.0) Red Blood Count 4.24 x10^6/uL (3.50-5.40) Hemoglobin 12.3 g/dL (12.0-15.5) Hematocrit 34.7 % (36.0-47.0) Mean Corpuscular Volume 82 fL (79-100) Mean Corpuscular Hemoglobin 29 pg (25-35) Mean Corpuscular Hemoglobin Concent 36 g/dL (31-37) Red Cell Distribution Width 12.6 % (11.5-14.5) Platelet Count 441 x10^3/uL (140-400) Neutrophils (%) (Auto) 71 % (31-73) Lymphocytes (%) (Auto) 19 % (24-48) Monocytes (%) (Auto) 9 % (0-9) Eosinophils (%) (Auto) 1 % (0-3) Basophils (%) (Auto) 1 % (0-3) Neutrophils # (Auto) 5.4 x10^3uL (1.8-7.7) Lymphocytes # (Auto) 1.4 x10^3/uL (1.0-4.8) Monocytes # (Auto) 0.7 x10^3/uL (0.0-1.1) Eosinophils # (Auto) 0.1 x10^3/uL (0.0-0.7) Basophils # (Auto) 0.1 x10^3/uL (0.0-0.2) Sodium Level 126 mmol/L (136-145) Potassium Level 4.1 mmol/L (3.5-5.1) Chloride Level 91 mmol/L (98-107) Carbon Dioxide Level 24 mmol/L (21-32) Anion Gap 11 (6-14) Blood Urea Nitrogen 12 mg/dL (7-20) Creatinine 0.8 mg/dL (0.6-1.0) Estimated GFR (Cockcroft-Gault) 78.7 Glucose Level 136 mg/dL (70-99) Calcium Level 9.0 mg/dL (8.5-10.1) Magnesium Level 1.3 mg/dL (1.8-2.4) Free Thyroxine 1.10 ng/dL (0.76-1.46) Glucose (Fingerstick) 129 mg/dL (70-99) Laboratory Tests Test 11/18/18 09:24 11/18/18 12:00 White Blood Count 7.6 x10^3/uL (4.0-11.0) Red Blood Count 4.24 x10^6/uL (3.50-5.40) Hemoglobin 12.3 g/dL (12.0-15.5) Hematocrit 34.7 % (36.0-47.0) Mean Corpuscular Volume 82 fL (79-100) Mean Corpuscular Hemoglobin 29 pg (25-35) Mean Corpuscular Hemoglobin Concent 36 g/dL (31-37) Red Cell Distribution Width 12.6 % (11.5-14.5) Platelet Count 441 x10^3/uL (140-400) Neutrophils (%) (Auto) 71 % (31-73) Lymphocytes (%) (Auto) 19 % (24-48) Monocytes (%) (Auto) 9 % (0-9) Eosinophils (%) (Auto) 1 % (0-3) Basophils (%) (Auto) 1 % (0-3) Neutrophils # (Auto) 5.4 x10^3uL (1.8-7.7) Lymphocytes # (Auto) 1.4 x10^3/uL (1.0-4.8) Monocytes # (Auto) 0.7 x10^3/uL (0.0-1.1) Eosinophils # (Auto) 0.1 x10^3/uL (0.0-0.7) Basophils # (Auto) 0.1 x10^3/uL (0.0-0.2) Sodium Level 126 mmol/L (136-145) Potassium Level 4.1 mmol/L (3.5-5.1) Chloride Level 91 mmol/L (98-107) Carbon Dioxide Level 24 mmol/L (21-32) Anion Gap 11 (6-14) Blood Urea Nitrogen 12 mg/dL (7-20) Creatinine 0.8 mg/dL (0.6-1.0) Estimated GFR (Cockcroft-Gault) 78.7 Glucose Level 136 mg/dL (70-99) Calcium Level 9.0 mg/dL (8.5-10.1) Magnesium Level 1.3 mg/dL (1.8-2.4) Free Thyroxine 1.10 ng/dL (0.76-1.46) Glucose (Fingerstick) 129 mg/dL (70-99) Images Images CT Head - No pathologic extra-axial or intra-axial fluid collection. The ventricles and basal cisterns are within normal limits. No acute intracranial bleed. No focal loss of murphy-white differentiation. Orbits are within normal limits. No suspicious calvarial lesion. Visualized paranasal sinuses and mastoid air cells are clear. IMPRESSION: No acute intracranial processes noncontrast CT VTE Prophylaxis Ordered VTE Prophylaxis Devices: Contraindicated VTE Pharmacological Prophylaxi: No Assessment/Plan Assessment/Plan A/P: Intermittent diplopia - will consult neuro. Reassuring she just had ophtho examination, and actually her symptoms wax and wane with no other neuro deficits, likely side effect of her meds Hyponatremia - could be 2/2 oxcarbazepine or psychogenic polydipsia, she does note she drinks excessively when she drives. Repeat in AM Hypomagnesemia - replaced. Will repeat in AM Bipolar depression - will restart her home medications, all reviewed with her. FEN - General diet PPX - low risk FULL CODE Dispo - will get MRI per neuro recs, repeat electrolyte levels. Likely can discharge in morning. RIFFEL,CHRISTOPHER S MD Nov 18, 2018 14:19
[2018-11-18] MEDS ORDERED: DEXTROSE 50% 25 GM / 50ML DISP.SYRIN. IV PRN (14:30)
[2018-11-18] MEDS ORDERED: ALBUTEROL SULFATE 2.5 MG/3 ML NEBU. NEB PRN (14:30)
[2018-11-18 15:00] VITALS: BP 165/97
[2018-11-18] MEDS: TOPIRAMATE 25 MG TABLET. PO SCH (15:36)
[2018-11-18] MEDS: CETIRIZINE HCL 10 MG TABLET. PO SCH (15:36)
[2018-11-18] MEDS: amLODIPine BESYLATE 5 MG TABLET PO SCH (15:36)
[2018-11-18] MEDS: buPROPion XL 150 MG TAB.ER.24H. PO SCH (15:37)
[2018-11-18] MEDS ORDERED: ACETAMINOPHEN 325 MG TABLET. PO PRN (16:15)
[2018-11-18] MEDS: INSULIN LISPRO 300 UNITS/3 ML INSULN.PEN. SQ SCH (16:53)
[2018-11-18 19:10] VITALS: BP 149/97
[2018-11-18] MEDS: BENZTROPINE MESYLATE 1 MG TABLET. PO SCH (20:44)
[2018-11-18] MEDS ORDERED: OXcarbazepine 300 MG TABLET PO SCH (21:00)
[2018-11-18] MEDS ORDERED: MONTELUKAST SODIUM 10 MG TABLET. PO SCH (21:00)
[2018-11-18 23:10] VITALS: BP 133/91
[2018-11-19 03:10] VITALS: BP 142/96
[2018-11-19 03:57] LABS: ALBUMIN 4.2 g/dL (3.4-5.0); CALCIUM 8.6 mg/dL (8.5-10.1); CREATININE 0.7 mg/dL (0.6-1.0); GFR 91.8; MAGNESIUM 1.8 mg/dL (1.8-2.4); POTASSIUM 3.6 mmol/L (3.5-5.1)
[2018-11-19 07:00] VITALS: BP 160/98
[2018-11-19] MEDS: INSULIN LISPRO 300 UNITS/3 ML INSULN.PEN. SQ SCH ×2 (08:00→11:39)
[2018-11-19] MEDS: CETIRIZINE HCL 10 MG TABLET. PO SCH (08:32)
[2018-11-19] MEDS: TOPIRAMATE 25 MG TABLET. PO SCH (08:32)
[2018-11-19] MEDS: BENZTROPINE MESYLATE 1 MG TABLET. PO SCH (08:32)
[2018-11-19] MEDS: amLODIPine BESYLATE 5 MG TABLET PO SCH (08:32)
[2018-11-19] MEDS: buPROPion XL 150 MG TAB.ER.24H. PO SCH (08:33)
--- NOTE | 2018-11-19 08:39 | RAD ---
MRI of the brain without contrast 11/18/2018 Clinical History: Diplopia. Technique: Unenhanced T1-weighted sagittal and axial, T2-weighted axial and coronal and FLAIR, gradient echo and diffusion-weighted axial images of the brain were obtained. Findings: Comparison is made to patient's CT scan of the head dated 11/12/2018. The ventricles and sulci are within normal limits in size and configuration. No area of significant abnormal signal intensity is seen involving brain parenchyma. No extra-axial fluid collection is seen. There is no MRI evidence of acute ischemia/infarction. The orbits are within normal limits The paranasal sinuses are essentially clear. Degenerative changes are seen involving both TMJs, right greater than left. Small joint effusions are seen bilaterally. Normal flow voids are seen within the major vascular structures surrounding the brain parenchyma. Impression: Essentially negative study. Electronically signed by: Nick Mueller MD (11/19/2018 8:35 AM) [id number]
[2018-11-19] MEDS ORDERED: FENOFIBRATE,MICRONIZED 134 MG CAPSULE PO SCH (09:00)
[2018-11-19 11:00] VITALS: BP 134/87
--- NOTE | 2018-11-19 11:31 | NUR ---
SW following pt for anticipated dc needs. Chart reviewed. Pt lives at home with spouse and no SW needs noted at this time.
--- NOTE | 2018-11-19 11:54 | PDOC ---
PROGRESS NOTES Assessment Problems Medical Problems: (1) Blurred vision Status: Acute (2) Hypomagnesemia Status: Acute (3) Hyponatremia Status: Acute Intermittent diplopia, negative exam, suspect medication effects as she is on multiple psychiatric medications. I find no evidence of intracranial pathology, myasthenia, or other neuromuscular disease. Brain MRI negative Hyponatremia, she is on oxcarbazepine which could cause this. She strongly wants to stay on this medication as it helps her bipolar symptoms, therefore she should pursue fluid restriction Plan Okay for discharge Order printed for outpatient myasthenia serology testing. Subjective Still has some occasional diplopia. This is really more of a blurred vision Objective Vital Signs Date Time Temp Pulse Resp B/P (MAP) Pulse Ox O2 Delivery O2 Flow Rate FiO2 11/19/18 11:00 98.4 89 20 134/87 (103) 95 Room Air 98.4 Intake and Output 11/19/18 06:59 Intake Total 1100 ml Balance 1100 ml Intake Oral 1100 ml # Voids 3 PHYSICAL EXAM Alert. Oriented to time, place and person. PERRL. EOMI, No dysconjugate gaze, no diplopia. CN: no focal findings. Muscle tone: normal. Muscle strength: 5/5 DTR: 2+ Plantar reflex: flexor Gait: not examined in bed. Sensory exam: no abnormal findings. No cerebellar signs elicited. Review of Relevant I have reviewed the following items hunter (where applicable) has been applied. Labs Laboratory Tests Test 11/18/18 09:24 11/18/18 12:00 11/18/18 16:41 11/18/18 20:31 White Blood Count 7.6 x10^3/uL (4.0-11.0) Red Blood Count 4.24 x10^6/uL (3.50-5.40) Hemoglobin 12.3 g/dL (12.0-15.5) Hematocrit 34.7 % (36.0-47.0) Mean Corpuscular Volume 82 fL (79-100) Mean Corpuscular Hemoglobin 29 pg (25-35) Mean Corpuscular Hemoglobin Concent 36 g/dL (31-37) Red Cell Distribution Width 12.6 % (11.5-14.5) Platelet Count 441 x10^3/uL (140-400) Neutrophils (%) (Auto) 71 % (31-73) Lymphocytes (%) (Auto) 19 % (24-48) Monocytes (%) (Auto) 9 % (0-9) Eosinophils (%) (Auto) 1 % (0-3) Basophils (%) (Auto) 1 % (0-3) Neutrophils # (Auto) 5.4 x10^3uL (1.8-7.7) Lymphocytes # (Auto) 1.4 x10^3/uL (1.0-4.8) Monocytes # (Auto) 0.7 x10^3/uL (0.0-1.1) Eosinophils # (Auto) 0.1 x10^3/uL (0.0-0.7) Basophils # (Auto) 0.1 x10^3/uL (0.0-0.2) Sodium Level 126 mmol/L (136-145) Potassium Level 4.1 mmol/L (3.5-5.1) Chloride Level 91 mmol/L (98-107) Carbon Dioxide Level 24 mmol/L (21-32) Anion Gap 11 (6-14) Blood Urea Nitrogen 12 mg/dL (7-20) Creatinine 0.8 mg/dL (0.6-1.0) Estimated GFR (Cockcroft-Gault) 78.7 Glucose Level 136 mg/dL (70-99) Calcium Level 9.0 mg/dL (8.5-10.1) Magnesium Level 1.3 mg/dL (1.8-2.4) Free Thyroxine 1.10 ng/dL (0.76-1.46) Glucose (Fingerstick) 129 mg/dL (70-99) 140 mg/dL (70-99) 137 mg/dL (70-99) Test 11/19/18 03:10 11/19/18 07:36 11/19/18 11:22 Sodium Level 131 mmol/L (136-145) Potassium Level 3.6 mmol/L (3.5-5.1) Chloride Level 96 mmol/L (98-107) Carbon Dioxide Level 24 mmol/L (21-32) Anion Gap 11 (6-14) Blood Urea Nitrogen 9 mg/dL (7-20) Creatinine 0.7 mg/dL (0.6-1.0) Estimated GFR (Cockcroft-Gault) 91.8 Glucose Level 141 mg/dL (70-99) Calcium Level 8.6 mg/dL (8.5-10.1) Phosphorus Level 2.0 mg/dL (2.6-4.7) Magnesium Level 1.8 mg/dL (1.8-2.4) Albumin 4.2 g/dL (3.4-5.0) Glucose (Fingerstick) 141 mg/dL (70-99) 147 mg/dL (70-99) Laboratory Tests Test 11/18/18 12:00 11/18/18 16:41 11/18/18 20:31 11/19/18 03:10 Glucose (Fingerstick) 129 mg/dL (70-99) 140 mg/dL (70-99) 137 mg/dL (70-99) Sodium Level 131 mmol/L (136-145) Potassium Level 3.6 mmol/L (3.5-5.1) Chloride Level 96 mmol/L (98-107) Carbon Dioxide Level 24 mmol/L (21-32) Anion Gap 11 (6-14) Blood Urea Nitrogen 9 mg/dL (7-20) Creatinine 0.7 mg/dL (0.6-1.0) Estimated GFR (Cockcroft-Gault) 91.8 Glucose Level 141 mg/dL (70-99) Calcium Level 8.6 mg/dL (8.5-10.1) Phosphorus Level 2.0 mg/dL (2.6-4.7) Magnesium Level 1.8 mg/dL (1.8-2.4) Albumin 4.2 g/dL (3.4-5.0) Test 11/19/18 07:36 11/19/18 11:22 Glucose (Fingerstick) 141 mg/dL (70-99) 147 mg/dL (70-99) Medications Current Medications Sodium Chloride 1,000 ml @ 1,000 mls/hr 1X ONCE IV Last administered on 11/18/18at 10:31; Start 11/18/18 at 10:15; Stop 11/18/18 at 11:14; Status DC Magnesium Sulfate/ Dextrose 100 ml @ 25 mls/hr 1X ONCE IV Last administered on 11/18/18at 10:31; Start 11/18/18 at 10:15; Stop 11/18/18 at 14:14; Status DC Alprazolam (Xanax) 1 mg PRN Q6HRS PRN PO ANXIETY / AGITATION Last administered on 11/18/18 13:30; Start 11/18/18 at 12:45 Albuterol Sulfate (Ventolin Neb Soln) 2.5 mg PRN Q6HRS PRN NEB SHORTNESS OF BREATH; Start 11/18/18 at 14:30 Amlodipine Besylate (Norvasc) 5 mg DAILY PO Last administered on 11/19/18 08:32; Start 11/18/18 at 15:30 Cetirizine HCl (ZyrTEC) 10 mg DAILY PO Last administered on 11/19/18 08:32; Start 11/18/18 at 15:30 Bupropion HCl (Wellbutrin Xl) 300 mg DAILYWBKFT PO Last administered on 11/19/18 08:33; Start 11/18/18 at 15:30 Montelukast Sodium (Singulair) 10 mg QHS PO Last administered on 11/18/18 20:44; Start 11/18/18 at 21:00 Insulin Human Lispro (HumaLOG) 0-5 UNITS TIDWMEALS SQ ; Start 11/18/18 at 17:00 Dextrose (Dextrose 50%-Water Syringe) 12.5 gm PRN Q15MIN PRN IV SEE COMMENTS; Start 11/18/18 at 14:30 Benztropine Mesylate (Cogentin) 1 mg BID PO Last administered on 11/19/18 08:32; Start 11/18/18 at 21:00 Fenofibrate (Lofibra) 134 mg DAILY PO Last administered on 11/19/18 08:32; Start 11/19/18 at 09:00 Oxcarbazepine (Trileptal) 1,500 mg QHS PO Last administered on 11/18/18 20:44; Start 11/18/18 at 21:00 Topiramate (Topamax) 50 mg DAILY08 PO Last administered on 11/19/18 08:32; St art 11/18/18 at 15:30 Acetaminophen (Tylenol) 650 mg PRN Q6HRS PRN PO mild pain Last administered on 11/18/18 16:53; Start 11/18/18 at 16:15 Active Scripts Active Keflex (Cephalexin) 500 Mg Capsule 2 Cap PO Q12HR Reported Ibuprofen 800 Mg Tablet 800 Mg PO PRN Q6HRS PRN Oxcarbazepine 150 Mg Tablet 1,500 Mg PO HS Diclofenac Sodium 75 Mg Tablet.dr 1 Tab PO BID Bupropion Xl (Bupropion Hcl) 300 Mg Tab.er.24h 1 Tab PO DAILYWBKFT Benztropine Mesylate 1 Mg Tablet 1 Tab PO BID Zyrtec (Cetirizine Hcl) 10 Mg Tablet 1 Tab PO DAILY Fenofibrate 160 Mg Tablet 1 Tab PO DAILY Amlodipine Besylate 5 Mg Tablet 5 Mg PO DAILY Singulair Tablet (Montelukast Sodium) 10 Mg Tablet 10 Mg PO HS Xanax (Alprazolam) 1 Mg Tablet 1 Mg PO PRN Q6HRS PRN Albuterol Sulfate Hfa Inhaler (Albuterol Sulfate) 8.5 Gm Hfa.aer.ad 2 Puff INH Q4HRS PRN Metformin Hcl Er (Metformin Hcl) 1,000 Mg Tab.er.24 2,000 Mg PO DAILY08 Topamax (Topiramate) 50 Mg Tablet 50 Mg PO DAILY08 Vitals/I & O Vital Sign - Last 24 Hours 11/18/18 11/18/18 11/18/18 11/18/18 13:09 13:21 15:00 15:36 Temp 100.5 99.9 100.5 99.9 Pulse 116 117 116 Resp 18 18 B/P (MAP) 164/99 (120) 165/97 (119) 164/99 Pulse Ox 97 95 O2 Delivery Room Air Room Air Room Air 11/18/18 11/18/18 11/18/18 11/19/18 19:10 20:00 23:10 03:10 Temp 98.9 98.7 98.3 98.9 98.7 98.3 Pulse 98 88 96 Resp 16 16 16 B/P (MAP) 149/97 (114) 133/91 (105) 142/96 (111) Pulse Ox 98 98 98 O2 Delivery Room Air Room Air Room Air Room Air 11/19/18 11/19/18 11/19/18 11/19/18 07:00 08:00 08:32 11:00 Temp 98.9 98.4 98.9 98.4 Pulse 97 97 89 Resp 16 20 B/P (MAP) 160/98 (118) 160/98 134/87 (103) Pulse Ox 95 95 O2 Delivery Room Air Room Air Room Air Intake and Output 11/18/18 11/18/18 11/19/18 14:59 22:59 06:59 Intake Total 800 ml 300 ml Balance 800 ml 300 ml Images MRI of the brain without contrast 11/18/2018 Clinical History: Diplopia. Technique: Unenhanced T1-weighted sagittal and axial, T2-weighted axial and coronal and FLAIR, gradient echo and diffusion-weighted axial images of the brain were obtained. Findings: Comparison is made to patient's CT scan of the head dated 11/12/2018. The ventricles and sulci are within normal limits in size and configuration. No area of significant abnormal signal intensity is seen involving brain parenchyma. No extra-axial fluid collection is seen. There is no MRI evidence of acute ischemia/infarction. The orbits are within normal limits The paranasal sinuses are essentially clear. Degenerative changes are seen involving both TMJs, right greater than left. Small joint effusions are seen bilaterally. Normal flow voids are seen within the major vascular structures surrounding the brain parenchyma. Impression: Essentially negative study. ARTURO COLUNGA MD Nov 19, 2018 11:53
--- NOTE | 2018-11-19 13:20 | NUR ---
Discharge Note: SAURABH HERNANDEZ [address] [place] [address] Discharge instructions and discharge home medications reviewed with Patient and a copy given. All questions have been answered and understanding verbalized. The following instructions and handouts were given: F/U with PCP within one week, F/U with Dr. Kumar within 6 weeks. Get labs drawn outpatient per paper order form. Discontinued lines and drains: Peripheral IV intact. Patient discharged to Home or Self Care with Spouse via Ambulated.
--- NOTE | 2018-11-19 14:12 | SSS ---
ADMIT DATE: 11/18/2018 CHIEF COMPLAINT: Visual changes. HISTORY OF PRESENT ILLNESS: The patient is a pleasant middle-aged female who has multiple comorbidities who basically presented with visual changes. While she was in the ER, she is noted to have a sodium level of 126 and her magnesium level is also low. We admitted the patient overnight for observation. This morning, we did consult Neurology. I have discussed the case with the nurse. Neurology saw the patient and feels she could probably go home. Her symptoms have improved. We plan to discharge this afternoon. We suspect her multiple medications may be causing her visual changes. PAST MEDICAL HISTORY: Polypharmacy, diabetes, hypertension, hyperlipidemia. ALLERGIES: PENICILLIN, LACTOSE, LITHIUM, RISPERDAL, TRAZODONE. FAMILY HISTORY: Diabetes. SOCIAL HISTORY: She does not drink, smoke or take drugs. She is . MEDICATIONS: Reviewed, please refer to the MRAD. REVIEW OF SYSTEMS: GENERAL: No history of weight change, weakness or fevers. SKIN: No bruising, hair changes or rashes. EYES: No blurred, double or loss of vision. NOSE AND THROAT: No history of nosebleeds, hoarseness or sore throat. HEART: No history of palpitations, chest pain or shortness of breath on exertion. LUNGS: Denies cough, hemoptysis, wheezing or shortness of breath. GASTROINTESTINAL: Denies changes in appetite, nausea, vomiting, diarrhea or constipation. GENITOURINARY: No history of frequency, urgency, hesitancy or nocturia. NEUROLOGIC: Denies history of numbness, tingling, tremor or weakness. PSYCHIATRIC: No history of panic, anxiety or depression. ENDOCRINE: No history of heat or cold intolerance, polyuria or polydipsia. EXTREMITIES: Denies muscle weakness, joint pain, pain on walking or stiffness. PHYSICAL EXAMINATION: VITAL SIGNS: Stable. GENERAL: She is alert, cooperative, requesting discharge. HEART: Normal S1, S2. LUNGS: Clear. ABDOMEN: Soft. EXTREMITIES: No edema. SKIN: No rash. ENDOCRINE: No thyromegaly. LYMPHATICS: No cervical nodes. HEMATOPOIETIC: No bruising. PSYCHIATRIC: She is stable. NEUROLOGIC: She is moving all extremities. No focal deficits. LABORATORY DATA: White count was 7, hemoglobin 12, platelets 441. Imaging of the brain was negative that was including an MRI. ASSESSMENT AND PLAN: Visual changes, hyponatremia and hypomagnesemia. The patient has been admitted. We corrected her electrolytes. She will go home today. DISPOSITION: Home. ACTIVITY: As tolerated. DIET: Low sodium. MEDICATIONS: Please see MRAD. TOTAL TIME: 32 minutes. ROSIE MCCRARY DO DR: PEGGY/bailey JOB#: [id number] / [id number]
== END 2018-11-19 13:19 | disposition home or self-care (01) | DRG 641 ==
LOC: ER 08:48 → 6 SOUTH 10:20
PROVIDERS: ADMIT Internal Medicine; ATTEND Internal Medicine
DX: E87.1 Hypo-osmolality and hyponatremia (principal); F31.30 Bipolar disorder, current episode depressed, mild or moderate severity, unspecified; H53.2 Diplopia; E11.9 Type 2 diabetes mellitus without complications; E78.00 Pure hypercholesterolemia, unspecified; E78.5 Hyperlipidemia, unspecified; E83.42 Hypomagnesemia; F31.9 Bipolar disorder, unspecified; G47.30 Sleep apnea, unspecified; I10 Essential (primary) hypertension; J45.909 Unspecified asthma, uncomplicated; M79.7 Fibromyalgia; Z83.3 Family history of diabetes mellitus; Z87.440 Personal history of urinary (tract) infections; F41.9 Anxiety disorder, unspecified; G43.909 Migraine, unspecified, not intractable, without status migrainosus; G47.00 Insomnia, unspecified; M19.90 Unspecified osteoarthritis, unspecified site; Z90.49 Acquired absence of other specified parts of digestive tract; Z98.51 Tubal ligation status; Z88.0 Allergy status to penicillin; Z88.8 Allergy status to other drugs, medicaments and biological substances; Z88.1 Allergy status to other antibiotic agents; Z91.040 Latex allergy status
CPT/HCPCS: 36415; 70551; 80048; 80069; 82962; 83735; 84439; 85025; 93005; J1815; J3475; J7030; 99285-25

== ENCOUNTER 2021-04-04 00:44 | Emergency (ER) | payer BC ==
[~2021-04-04] VITALS: Ht 157.5 cm; Wt 78.9 kg
[~2021-04-04 00:44] MED LIST changes: +AMLO-186 PO; +BENZ1TAB5 PO; +BUPR300T92 PO; +CETI10TA74 PO; +DICL75TA PO; +FENO145T3 PO; -FENO145T30 PO; +FENO160T PO; -GLIM4TAB2 PO; +GLIM4TAB8 PO; +IBUP-1060 PO; +LISI1TAB20 PO; -LISI1TAB7 PO; +MONT10TA49 PO; -MONT10TA6 PO; +OXCA150T19 PO; +TRAZ-123 PO; -TRAZ-86 PO
[2021-04-04 02:07] LABS: BASO # 0.1 x10^3/uL (0.0-0.2); BASO % 1 % (0-3); EOS # 0.4 x10^3/uL (0.0-0.7); EOS % 3 % (0-3); HEMATOCRIT 33.9 % (36.0-47.0); HEMOGLOBIN 11.5 g/dL (12.0-15.5); LYMPH # 2.5 x10^3/uL (1.0-4.8); LYMPH % 23 % (24-48); MEAN CORPUSCULAR HEMOGLOBIN 28 pg (25-35); MEAN CORPUSCULAR HGB CONC 34 g/dL (31-37); MEAN CORPUSCULAR VOLUME 84 fL (79-100); MONO # 1.1 x10^3/uL (0.0-1.1); MONO % 10 % (0-9); NEUT % 63 % (31-73); PLATELET COUNT 336 x10^3/uL (140-400); RED BLOOD COUNT 4.06 x10^6/uL (3.50-5.40); RED CELL DISTRIBUTION WIDTH 12.9 % (11.5-14.5); WHITE BLOOD COUNT 11.1 x10^3/uL (4.0-11.0)
[2021-04-04] MEDS ORDERED: MORPHINE SULFATE 2 MG/ML INJ. IVP ONE (02:15)
[2021-04-04] MEDS ORDERED: ONDANSETRON PF 4 MG/2 ML VIAL. IVP ONE (02:15)
[2021-04-04 02:28] LABS: CALCIUM 8.9 mg/dL (8.5-10.1); GFR 60.2; POTASSIUM 3.8 mmol/L (3.5-5.1)
[2021-04-04 02:39] LABS: ALBUMIN 3.9 g/dL (3.4-5.0); ALBUMIN/GLOBULIN RATIO 1.1 (1.0-1.7); TOTAL BILIRUBIN 0.3 mg/dL (0.2-1.0); TOTAL PROTEIN 7.6 g/dL (6.4-8.2)
[2021-04-04 02:45] LABS: BILIRUBIN,URINE NEGATIVE (NEG); CLARITY,URINE CLOUDY; COLOR,URINE YELLOW; NITRITE,URINE NEGATIVE (NEG); PH,URINE 7.5 (<5.0-8.0); PROTEIN,URINE NEGATIVE (NEG-TRACE); UROBILINOGEN,URINE 0.2 mg/dL (0.2 mg/dL)
[2021-04-04] MEDS ORDERED: CONTRAST GIVEN. MC PRN (02:45)
[2021-04-04] MEDS ORDERED: IOHEXOL 300 MG/ML 100ML VIAL. IV ONE (02:45)
[2021-04-04 02:53] LABS: AMORPHOUS SEDIMENT,UR PRESENT /HPF; BACTERIA,URINE FEW /HPF (0-FEW); RBC,URINE 0 /HPF (0-2); WBC,URINE >40 /HPF (0-4)
--- NOTE | 2021-04-04 02:55 | PHYS DOC ---
Past Medical History Past Medical History: Anxiety, Arthritis, Asthma, Bipolar, Depression, Diabetes-Type II, Fibromyalgia, High Cholesterol, Hypertension, Migraines, Other Additional Past Medical Histor: ptsd,add,carpal tunnel,insomnia,c5-c7 bulging discs,CISCO Past Surgical History: Cholecystectomy, Tubal ligation, Other Additional Past Surgical Histo: hymenectomy? Smoking Status: Never Smoker Alcohol Use: Occasionally Drug Use: None General Adult EDM: Chief Complaint: ABDOMINAL PAIN HPI: HPI: Patient is a 45 year old female with history of cholecystectomy who presents with right upper quadrant/epigastric pain for the past 3 days. Started in the morning shortly after eating [employer] breakfast. Radiates through to the back. Has been constant since onset. Made worse by food intake. Associated with nausea and decreased p.o. intake. No diarrhea. Normal bowel movement, last yesterday. No fevers or chills. No urinary symptoms including dysuria, urgency, or frequency. No vaginal discharge or bleeding. States that she did have a history of gallstones leading to a cholecystectomy. Does not think that she has had gallstone issues since her surgery. Drinks alcohol once every couple of months. Denies drug use. Review of Systems: Review of Systems: Constitutional: Denies fever or chills. [] Eyes: Denies change in visual acuity. [] HENT: Denies nasal congestion or sore throat. [] Respiratory: Denies cough or shortness of breath. [] Cardiovascular: Denies chest pain or edema. [] GI: Reports abdominal pain and nausea. : Denies dysuria. [] Musculoskeletal: Denies back pain or joint pain. [] Integument: Denies rash. [] Neurologic: Denies headache, focal weakness or sensory changes. [] Endocrine: Denies polyuria or polydipsia. [] Lymphatic: Denies swollen glands. [] Psychiatric: Denies depression or anxiety. [] Heart Score: C/O Chest Pain: No Current Medications: Current Medications Medications (Trade) Dose Ordered Sig/Caitlin Start Time Stop Time Status Last Admin Dose Admin Info (CONTRAST GIVEN -- Rx MONITORING) 1 each PRN DAILY PRN 04/04/21 02:45 04/06/21 02:44 Iohexol (Omnipaque 300 Mg/ml) 75 ml 1X ONCE 04/04/21 02:45 04/04/21 02:46 DC Morphine Sulfate (Morphine Sulfate) 2 mg 1X ONCE 04/04/21 02:15 04/04/21 02:16 DC 04/04/21 02:08 2 MG Ondansetron HCl (Zofran) 4 mg 1X ONCE 04/04/21 02:15 04/04/21 02:16 DC 04/04/21 02:08 4 MG Allergies: Allergies: Allergies Coded Allergies Type Severity Reaction Last Updated Verified Penicillins Allergy Intermediate hives/rash 03/18/17 Yes lactose Allergy Intermediate 11/18/18 Yes trazodone Allergy Intermediate 11/18/18 Yes ziprasidone Allergy Intermediate "spaced out" 03/18/17 No erythromycin base Adverse Reaction Intermediate vomiting 04/04/21 Yes lithium Adverse Reaction Intermediate toxicity 04/04/21 Yes olanzapine Adverse Reaction Intermediate twitching 04/04/21 Yes risperidone Adverse Reaction Intermediate altered mental status 04/04/21 Yes Physical Exam: PE: Constitutional: Well developed, well nourished, no acute distress, non-toxic appearance. [] HENT: Normocephalic, atraumatic, bilateral external ears normal, oropharynx moist, no oral exudates, nose normal. [] Eyes: PERRLA, EOMI, conjunctiva normal, no discharge. [] Neck: Normal range of motion, no tenderness, supple, no stridor. [] Cardiovascular:Heart rate regular rhythm, no murmur [] Lungs & Thorax: Bilateral breath sounds clear to auscultation [] Abdomen: Soft, significant epigastric and right upper quadrant tenderness to palpation. Voluntary guarding noted in those areas. No guarding for the remainder of the examination. No rebound tenderness. Skin: Warm, dry, no erythema, no rash. [] Back: No tenderness, no CVA tenderness. [] Extremities: No tenderness, no cyanosis, no clubbing, ROM intact, no edema. [] Neurologic: Alert and oriented X 3, normal motor function, normal sensory function, no focal deficits noted. [] Psychologic: Affect normal, judgement normal, mood normal. [] Current Patient Data: Labs: Laboratory Tests Test 04/04/21 02:00 04/04/21 02:34 White Blood Count 11.1 x10^3/uL (4.0-11.0) H Red Blood Count 4.06 x10^6/uL (3.50-5.40) Hemoglobin 11.5 g/dL (12.0-15.5) L Hematocrit 33.9 % (36.0-47.0) L Mean Corpuscular Volume 84 fL (79-100) Mean Corpuscular Hemoglobin 28 pg (25-35) Mean Corpuscular Hemoglobin Concent 34 g/dL (31-37) Red Cell Distribution Width 12.9 % (11.5-14.5) Platelet Count 336 x10^3/uL (140-400) Neutrophils (%) (Auto) 63 % (31-73) Lymphocytes (%) (Auto) 23 % (24-48) L Monocytes (%) (Auto) 10 % (0-9) H Eosinophils (%) (Auto) 3 % (0-3) Basophils (%) (Auto) 1 % (0-3) Neutrophils # (Auto) 7.0 x10^3/uL (1.8-7.7) Lymphocytes # (Auto) 2.5 x10^3/uL (1.0-4.8) Monocytes # (Auto) 1.1 x10^3/uL (0.0-1.1) Eosinophils # (Auto) 0.4 x10^3/uL (0.0-0.7) Basophils # (Auto) 0.1 x10^3/uL (0.0-0.2) Sodium Level 131 mmol/L (136-145) L Potassium Level 3.8 mmol/L (3.5-5.1) Chloride Level 96 mmol/L (98-107) L Carbon Dioxide Level 28 mmol/L (21-32) Anion Gap 7 (6-14) Blood Urea Nitrogen 17 mg/dL (7-20) Creatinine 1.0 mg/dL (0.6-1.0) Estimated GFR (Cockcroft-Gault) 60.2 BUN/Creatinine Ratio 17 (6-20) Glucose Level 293 mg/dL (70-99) H Calcium Level 8.9 mg/dL (8.5-10.1) Total Bilirubin 0.3 mg/dL (0.2-1.0) Aspartate Amino Transferase (AST) 19 U/L (15-37) Alanine Aminotransferase (ALT) 24 U/L (14-59) Alkaline Phosphatase 39 U/L (46-116) L Total Protein 7.6 g/dL (6.4-8.2) Albumin 3.9 g/dL (3.4-5.0) Albumin/Globulin Ratio 1.1 (1.0-1.7) Lipase 1149 U/L (73-393) H POC Urine HCG, Qualitative Hcg negative (Negative) Laboratory Tests 04/04/21 02:00 Laboratory Tests 04/04/21 02:00 Vital Signs: Vital Signs Date Time Temp Pulse Resp B/P (MAP) Pulse Ox O2 Delivery O2 Flow Rate FiO2 04/04/21 02:36 102 21 127/82 (97) 96 Room Air 04/04/21 01:35 98.5 98.5 EKG: EKG: [] Radiology/Procedures: Radiology/Procedures: [] Impression: [facility] [address] [place] [address] IMAGING REPORT Signed PATIENT: SAURABH HERNANDEZ ACCOUNT: [id number] : 1975 LOCATION: ER AGE: 45 SEX: F EXAM STATUS: REG ER ORD. PHYSICIAN: ALLEGRA SALAMANCA MD REASON: epigastric and RUQ pain radiating to back. hx yuliana;OMNI 300,75ML PROCEDURE: CT ABD PELV W/ IV CONTRST ONLY EXAMINATION: CT ABDOMEN+PELVIS W CLINICAL HISTORY: Epigastric and RUQ pain radiating to back. History of cholecystectomy TECHNIQUE: CT of the abdomen and pelvis was performed using standard technique, scanning from just above the dome of the diaphragm to the symphysis pubis following administration of intravenous contrast. CT Dose Reduction Employed: One or more of the following individualized dose reduction techniques were utilized for this examination: 1. Automated exposure control 2. Adjustment of the mA and/or kV according to patient size 3. Use of iterative reconstruction technique. COMPARISON: None FINDINGS: Right basilar curvilinear subsegmental atelectasis and/or scarring. Elevation of the right hemidiaphragm. Hepatomegaly with steatosis. Small old calcified granulomas in the liver and spleen. Cholecystectomy. 1.6 cm left adrenal nodule, incompletely evaluated but may represent an adenoma. Kidneys unremarkable. Minimally distended urinary bladder, suboptimally evaluated. Uterus and ovaries unremarkable. Mild mesenteric stranding in the region of the third-fourth segments of the duodenum and inferior pancreatic head/uncinate process extending along the anterior pararenal fascia and right paracolic gutter, nonspecific but suspicious for mild duodenitis. Acute pancreatitis is also a consideration but felt to be less likely. The pancreas is otherwise unremarkable. No bowel dilation. Prominent stool in the ascending and transverse colon. Minimal sigmoid diverticulosis without evidence of acute diverticulitis. Appendix within normal limits. No abdominal aortic or iliac artery aneurysm. Multilevel thoracolumbar degenerative changes. IMPRESSION: Findings suspicious for mild duodenitis as described. Acute pancreatitis considered less likely but not excluded, correlate with symptomatology and serum lipase. Hepatomegaly with steatosis. Prominent stool in the ascending and transverse colon. 1.6 cm left adrenal nodule, incompletely evaluated. Electronically signed by: Sree Khoury DO (04/04/2021 3:33 AM) [facility] DICTATED and SIGNED BY: SREE KHOURY DO DATE: 04/04/21 [id number] 0 Course & Med Decision Making: Course & Med Decision Making Pertinent Labs and Imaging studies reviewed. (See chart for details) Patient is a 45-year-old female with history of previous cholecystectomy/gallstones who presents with 72 hours of epigastric/right upper quadrant pain that radiates through to the back. On arrival is afebrile, hemodynamically stable. Has significant epigastric and right upper quadrant tenderness to palpation on examination. DDx included pancreatitis, choledocholithiasis, PUD. Lipase returned elevated 1149. Pain is consistent with pancreatitis. She is not a drinker, so I am concerned for potential gallstone pancreatitis. CT abdomen/pelvis was ordered to further evaluate. 0254 CT shows mild duodenitis/pancreatitis. No stones or causative findings. No surgical complications of pancreatitis. She has had no recent instrumentation, trauma, alcohol use, and no gallstone on CT. She does have a history of hypertriglyceridemia, so this could be a cause. Had a lipid panel drawn earlier this week by her PCP. She is also on sitagliptin, which may be a cause of pancreatitis as well. I have asked her to discontinue sitagliptin and to follow-up with her PCP within the week. Her pain and nausea are well controlled, and she would like to trial outpatient treatment. We will prescribe hydrocodone and Zofran. Return precautions for uncontrollable/worsening pain, uncontrollable nausea, or new fever/chills. [id number] Dragon Disclaimer: Malvin Disclaimer: This electronic medical record was generated, in whole or in part, using a voice recognition dictation system. Departure Departure Impression: Primary Impression: Pancreatitis Disposition: HOME / SELF CARE / HOMELESS Condition: STABLE Referrals: GREG VALENTIN MD (PCP) Patient Instructions: Acute Pancreatitis Additional Instructions: You have inflammation of your pancreas. I think this may be due to your medication., Januvia. Please discontinue this medication for now. It may also be due to high lipids in your blood. Please follow-up with your PCP regarding your lipid panel from earlier this week. Please schedule follow-up appointment with your PCP within the week. Please take pain medications and antiemetics as prescribed. Eat a bland diet, low in fats. You can progress your diet as you can tolerate it. Do not drink alcohol. Return to the ED for uncontrollable/worsening pain, uncontrollable nausea, fever or other new/concerning symptoms. Scripts Ondansetron Hcl (ZOFRAN) 4 Mg Tablet 1 TAB PO PRN Q4-6HRS PRN for NAUSEA, #20 TAB Prov: ALLEGRA SALAMANCA MD 04/04/21 Hydrocodone Bit/Acetaminophen (HYDROCODONE-APAP 5-325 ) 1 Tab Tablet 0.5-1 TAB PO PRN Q4-6HRS PRN for PAIN for 3 Days, #1 TAB 0 Refills Prov: ALLEGRA SALAMANCA MD 04/04/21 ALLEGRA SALAMANCA MD Apr 04, 2021 02:55
--- NOTE | 2021-04-04 03:35 | RAD ---
EXAMINATION: CT ABDOMEN+PELVIS W CLINICAL HISTORY: Epigastric and RUQ pain radiating to back. History of cholecystectomy TECHNIQUE: CT of the abdomen and pelvis was performed using standard technique, scanning from just ab ove the dome of the diaphragm to the symphysis pubis following administration of intravenous contrast . CT Dose Reduction Employed: One or more of the following individualized dose reduction techniques wer e utilized for this examination: 1. Automated exposure control 2. Adjustment of the mA and/or kV ac cording to patient size 3. Use of iterative reconstruction technique. COMPARISON: None FINDINGS: Right basilar curvilinear subsegmental atelectasis and/or scarring. Elevation of the right hemidiaphr agm. Hepatomegaly with steatosis. Small old calcified granulomas in the liver and spleen. Cholecystectomy. 1.6 cm left adrenal nodule, incompletely evaluated but may represent an adenoma. Kidneys unremarkabl e. Minimally distended urinary bladder, suboptimally evaluated. Uterus and ovaries unremarkable. Mild mesenteric stranding in the region of the third-fourth segments of the duodenum and inferior connell creatic head/uncinate process extending along the anterior pararenal fascia and right paracolic gutte r, nonspecific but suspicious for mild duodenitis. Acute pancreatitis is also a consideration but fel t to be less likely. The pancreas is otherwise unremarkable. No bowel dilation. Prominent stool in the ascending and transverse colon. Minimal sigmoid diverticulo sis without evidence of acute diverticulitis. Appendix within normal limits. No abdominal aortic or iliac artery aneurysm. Multilevel thoracolumbar degenerative changes. IMPRESSION: Findings suspicious for mild duodenitis as described. Acute pancreatitis considered less likely but n ot excluded, correlate with symptomatology and serum lipase. Hepatomegaly with steatosis. Prominent stool in the ascending and transverse colon. 1.6 cm left adrenal nodule, incompletely evaluated. Electronically signed by: Sree Gonzales DO (04/04/2021 3:33 AM) [facility]
[2021-04-04] MEDS ORDERED: ONDA4TAB7 PO (04:25)
[2021-04-04] MEDS ORDERED: HYDR-2761 PO (04:25)
[2021-04-04 04:36] VITALS: BP 113/73
== END 2021-04-04 04:49 | disposition home or self-care (01) ==
LOC: ER 00:44
DX: K85.90 Acute pancreatitis without necrosis or infection, unspecified (principal); M19.90 Unspecified osteoarthritis, unspecified site; J45.909 Unspecified asthma, uncomplicated; F41.9 Anxiety disorder, unspecified; F31.9 Bipolar disorder, unspecified; E11.9 Type 2 diabetes mellitus without complications; M79.7 Fibromyalgia; E78.00 Pure hypercholesterolemia, unspecified; I10 Essential (primary) hypertension; G43.909 Migraine, unspecified, not intractable, without status migrainosus; Z94.9 Transplanted organ and tissue status, unspecified; Z98.51 Tubal ligation status; Z88.0 Allergy status to penicillin; Z88.8 Allergy status to other drugs, medicaments and biological substances; Z88.1 Allergy status to other antibiotic agents
CPT/HCPCS: 36415; 74177; 80053; 81001; 81025; 83690; 85025; 96374; 96375; 99285; J2270; J2405; Q9967